=== PATIENT | female | born 1995 ===

== ENCOUNTER 2018-08-18 13:39 | Outpatient (CLI) | payer OTHER | END 2018-08-18 13:55 | disposition home or self-care (01) | LOC: SONOGRAMA 13:39 | DX: O02.1 Missed abortion (principal) ==

== ENCOUNTER 2018-08-20 09:02 | Day surgery (SDC) | payer OTHER ==
[~2018-08-20] VITALS: Ht 172.7 cm; Wt 55.3 kg
== END 2018-08-20 18:35 | disposition home or self-care (01) ==
LOC: ER 09:02 → CIR.AMB 09:32
DX: O02.1 Missed abortion (principal); Z3A.10 10 weeks gestation of pregnancy